=== PATIENT | male | born 1970 | race Caucasian/White ===

== ENCOUNTER → 2018-06-20 16:57 | Outpatient (CLI) | payer OTHER, SELFPAY ==
--- NOTE | 2018-06-20 16:59 | MRI_ITS ---
STUDY: MRI LEFT ELBOW REASON FOR EXAM: Male, 47 years old. Internal derangement. Lateral epicondylitis. Loose body. Pain. TECHNIQUE: Standardized fat and water weighted pulse sequences were obtained in all 3 orthogonal planes. COMPARISON: None. FINDINGS: There is a moderate volume joint effusion of the radio-capitellum articulation. There is partial tear of the radial collateral ligamentous complex. There is a tendinosis of the common extensor tendon origin with a partial deep surface tear, series 4 images 06/21 through . There is lateral epicondylar edema. Normal ulnotrochlear articulation. Normal ulnar collateral ligamentous complex. Normal common flexor tendon. The cubital tunnel is normal, with a normal ulnar nerve. Normal biceps tendon and distal insertion. Normal lacertus fibrosis. Normal brachialis musculotendinous insertion. Normal triceps tendon and teno-osseous insertion. Normal olecranon process. The visualized distal humerus, proximal radius, and ulna are normal. The visualized muscles of the distal arm and proximal forearm are normal. The soft tissue structures are unremarkable. MRI/Upper Ext Joint Only(Routine) IMPRESSION: Lateral epicondylitis with tearing of the common extensor tendon and the radial collateral ligament. Electronically Signed: Jarred Lafleur MD at 9:12 EST , Service support ,
== END ==
PROVIDERS: Family Provider Family Medicine; PCP Family Medicine; Referring Provider Orthopaedic Surgery; Visit Provider Orthopaedic Surgery
DX: M24.021 Loose body in right elbow (principal); M77.11 Lateral epicondylitis, right elbow
CPT/HCPCS: 73221

== ENCOUNTER → 2019-02-17 11:16 | Outpatient (CLI) | payer OTHER, SELFPAY ==
[2017-08-21 10:26] VITALS: BMI 30.8
[2019-02-17 11:18] LABS: Lyme Ab Screen Interpretation REF LAB
[2019-02-19 09:11] LABS: Lyme Scn Total Ab w/Rflx <0.91 ISR (0.00-0.90)
== END ==
LOC: MFPLAB 11:16
PROVIDERS: Family Provider Family Medicine; PCP Family Medicine; Referring Provider Family Medicine; Visit Provider Nurse Practitioner Adult Health
DX: T14.90XA Injury, unspecified, initial encounter (principal); W57.XXXA Bitten or stung by nonvenomous insect and other nonvenomous arthropods, initial encounter; Y92.9 Unspecified place or not applicable; Y99.9 Unspecified external cause status
CPT/HCPCS: 36415; 86618

== ENCOUNTER → 2021-05-22 09:45 | Outpatient (CLI) | payer MEDICARE, SELFPAY | PROVIDERS: PCP Family Medicine; Visit Provider Physician Assistant Surgical | DX: Z11.52 Encounter for screening for COVID-19 (principal) | CPT/HCPCS: 87635; U0005; U0003 ==

== ENCOUNTER 2022-01-05 18:32 | Emergency (ER) | payer OTHER, SELFPAY ==
[2022-01-05 18:33] VITALS: BP 162/86; PULSE 89; RESP 14; TEMP 36.8; O2SAT 99; BMI 29.5
--- NOTE | 2022-01-05 18:40 | EX.ED.DYSGE1 ---
HPI History of Present Illness Chief Complaint: Bite Informant: patient Onset/Context/Timing Onset: Weeks (1) Context: Gradual Onset Timing: Continuous Quality: Redness Location: Lumbar area Worsened by: Nothing Relieved by: Nothing Narrative Narrative: Patient presents with an insect bite that occurred 1 week ago. Patient does not know what he was bitten by. Patient states the rash is starting to look similar to the rash she had last year when he had Lyme disease. Patient denies any discharge or drainage. Patient states the area is red. Patient states there are some vesicles arranged in a circular pattern that is similar to the lesion he had last year. Patient denies any fevers or chills. Patient denies any joint pain. Patient does admit to some pain in his neck and back. Patient denies any fevers or chills. PFSH [facility] Medical History Hypertension Home Medications doxycycline monohydrate 100 mg PO BID #20 capsule 01/05/22 [Rx Last Taken Unknown] Allergy/AdvReac Type Severity Reaction Status Date / Time penicillin V Allergy Mild rash Verified 01/05/22 18:33 Family History (Updated 08/16/17 @ 10:31 by Ling Shi) Mother Hypertension Surgical History S/P knee surgery Social History Smoking Status: Current every day smoker tobacco type: cigarettes ROS ROS ED Constitutional Constitutional ED: Denies chills or fever(s) Eyes Eyes: Denies blurry vision or change in vision ENT ENT ED: Denies rhinorrhea or sore throat Cardiovascular Cardiovascular: Denies chest pain or palpitations Respiratory/Chest Respiratory/Chest: Denies cough or dyspnea Gastrointestinal Gastrointestinal: Denies nausea or vomiting Genitourinary Genitourinary ED: Denies dysuria or hematuria Musculoskeletal Musculoskeletal: Reports back pain and neck pain Integumentary Reports rash; Denies abscess Neurologic Neurologic: Denies headache(s) or weakness Allergic/Immunologic Allergic/Immunologic ED: Denies mouth swelling or urticaria EXAM Physical Exam Const Vital Signs: 01/05/22 18:33 Temperature 98.2 F Temperature Source Temporal Pulse Rate 89 Respiratory Rate 14 Blood Pressure 162/86 H Blood Pressure Mean 111 Pulse Ox 99 Oxygen Delivery Method Room Air Positive well nourished and well developed General Appearance ED: well developed and NAD HEENT Reports moist mucous membranes Neck supple and no JVD Neuro CN's II-XII intact bilaterally and no sensory deficits noted Sensorium / Orientation: alert Motor Exam: strength 5/5 throughout Skin Skin Narrative: There is erythema over the right lower lumbar paraspinal muscles. There is mild tenderness. There is mild warmth. There are some vesicles arranged in a circular pattern. There is no discharge or drainage. There is no crusting noted. There are no petechia noted. There is no involvement of the mucous membranes. MDM MDM MDM Narrative Medical decision making narrative: Lyme titers were obtained. Patient was started on doxycycline. Patient was given his first dose here. Patient was instructed to follow-up with his primary care physician in 5 to 7 days. Patient understood and was agreeable with the plan. All questions were answered. Discharge Plan Triage Chief Complaint: Bite ED Provider: Sahil Rios Dx/Rx/DC Orders Clinical Impression: Insect bite Instructions: ED Insect Bite Prescriptions: New doxycycline monohydrate 100 MG capsule 100 mg PO BID Qty: 20 RF: 0 Primary Care Provider: Care Physician,No Primary Referrals: Jose Manuel Son MD [STAFF PHYSICIAN] - 5-7 Days Disposition Disposition: Home, Self Care
[2022-01-05 18:48] VITALS: RESP 18
[2022-01-05] MEDS: Doxycycline 100 MG CAPSULE PO (18:53)
--- NOTE | 2022-01-05 19:00 | CM.ED ---
Social Work Note Reason for Referral: No PCP SW reviewed chart. Pt has no PCP and is listed as self-pay. Chata CASTREJON in to speak with pt and provided pt with list of PCP ands self-pay packet. Fatou Rocha LOTTERY SALES CLERK, PHOTOGRAPH EDITOR
[2022-01-05 19:04] LABS: Lyme Ab Screen Interpretation REF LAB
[2022-01-08 20:18] LABS: Lyme Scn Total Ab w/Rflx Negative (Negative)
== END 2022-01-05 19:03 | disposition home or self-care (01) ==
PROVIDERS: Emergency Provider Emergency Medicine; Visit Provider Emergency Medicine
DX: T63.481A Toxic effect of venom of other arthropod, accidental (unintentional), initial encounter (principal); M54.9 Dorsalgia, unspecified; F17.210 Nicotine dependence, cigarettes, uncomplicated; I10 Essential (primary) hypertension
CPT/HCPCS: 86618; 99283

== ENCOUNTER 2024-07-16 21:55 | Emergency (ER) | payer MEDICAID, SELFPAY ==
[2024-07-16 21:56] VITALS: BP 208/95; PULSE 81; RESP 18; TEMP 36.3; O2SAT 98; BMI 31.4
[2024-07-16 21:58] VITALS: BP 208/95; PULSE 81; RESP 18; TEMP 36.3; O2SAT 98
--- NOTE | 2024-07-16 22:09 | ED.VIS.DENTA ---
HPI History of Present Illness Chief Complaint: Dental [facility] Medical History Hypertension Home Medications ?Medication ?Instructions ?Recorded ?Last Taken ?Type doxycycline monohydrate 100 mg 100 mg PO BID #20 CAPSULES 01/05/22 Unknown Rx capsule clindamycin HCl 300 mg capsule 300 mg PO TID 7 days #21 caps 07/16/24 Unknown Rx Allergy/AdvReac Type Severity Reaction Status Date / Time penicillin V Allergy Mild rash Verified 07/16/24 21:56 Family History (Updated 08/16/17 @ 10:31 by Ling Shi) Mother Hypertension Surgical History S/P knee surgery Social History Smoking Status: Current every day smoker tobacco type: cigarettes EXAM Physical Exam Const Vital Signs: 07/16/24 21:56 07/16/24 21:58 Temperature 97.4 F L 97.4 F L Temperature Source Temporal Temporal Pulse Rate 81 81 Respiratory Rate 18 18 Blood Pressure 208/95 H 208/95 H Blood Pressure Mean 132 132 Pulse Ox 98 98 Oxygen Delivery Method Room Air Room Air MDM [facility] MDM Narrative Medical decision making narrative: HISTORY OF PRESENT ILLNESS: 53-year-old male here with dental pain. Patient notes several days of left lower molar pain. Notes he has appoint with dentistry on August 06. Denies fevers. Denies swelling about the throat. Denies drooling. Denies difficulty breathing. Denies neck stiffness or chest pain. REVIEW OF SYSTEMS: Pertinent positives: Pertinent negatives: PHYSICAL EXAM: Nursing triage notes reviewed, Vital signs reviewed Constitutional: please see mdm HENT: MMM, no evidence of dental abscess, no submandibular edema or induration, no tonsillar exudates or erythema, uvula midline, patient was controlling secretions, no drooling, no trimus, no dysphonia. Noted poor dentition. Patient does have significant erosion in the left posterior molar approximately tooth number 17 Eyes: Pupils equal round and reactive to light, Extraocular muscles intact Neck: No stridor, no JVD, full neck ROM Lungs: Clear to auscultation, No wheezing or rales. No increased work of breathing, no conversational dyspnea, no accessory muscle use, no nasal flaring. No respiratory distress noted Heart: Regular rate and rhythm, No murmurs, No rubs and No gallops, 2+ distal pulses (radial, femoral, posterior tibial) in all extremities MEDICAL DECISION MAKING: Chief Complaint: Dental pain External records reviewed: No recent ED visits, reviewed allergies, problem list, prior home meds Factors affecting care: None Social determinants of health: None History obtained from others: None Consults: None MDM Narrative: The patient was hemodynamically stable, afebrile, nontoxic-appearing. Exam with dental erosion consistent with poor dentition. I considered the following differential diagnosis: Dental abscess, ANUG, Ludewig's angina, RPA, PLANT SCIENCES PROFESSOR, dental caries, gingivitis No signs of any medical emergencies including Jerry's angina, ANUG, RPA, PLANT SCIENCES PROFESSOR. There are significant dental caries. Will start antibiotics in form of clindamycin, give Tylenol and ibuprofen instructions and give strict return precautions Shared decision making: I will have a discussion with the patient and or visitors regarding risk/benefits of further testing or admission. They will be made aware of of the risk/benefits inherent in this decision they will be given the opportunity to voice understanding. Impression: 1. Acute dental pain 2. Poor dentition Disposition: Discharge home This note was generated with [employer] dictation software. It may contain incorrect words, spelling, and punctuation that were not noted in review of the chart prior to signing. Discharge Plan Triage Chief Complaint: Dental ED Provider: Jakob Morel Dx/Rx/DC Orders Instructions: ED Dental Cavity Prescriptions: New clindamycin HCl 300 mg capsule 300 mg PO TID 7 Days Qty: 21 0RF No Action doxycycline monohydrate 100 MG capsule 100 mg PO BID Qty: 20 0RF Primary Care Provider: Care Physician,No Primary Referrals: Care Physician,No Primary [Primary Care Provider] - Print Language: Tristanian
[2024-07-16] MEDS: Clindamycin HCl 150 MG Capsule 300 MG PO (22:25)
[2024-07-16] MEDS: oxyCODONE 5 MG Tablet PO (22:26)
[2024-07-16] MEDS: Acetaminophen 325 MG Tablet PO (22:26)
[2024-07-16 22:30] VITALS: BP 172/91; PULSE 82; RESP 16; TEMP 36.6; O2SAT 99
== END 2024-07-16 22:37 | disposition home or self-care (01) ==
PROVIDERS: Emergency Provider Emergency Medicine; Visit Provider Emergency Medicine
DX: K08.89 Other specified disorders of teeth and supporting structures (principal); K02.9 Dental caries, unspecified; I10 Essential (primary) hypertension; F17.210 Nicotine dependence, cigarettes, uncomplicated; Z79.899 Other long term (current) drug therapy
CPT/HCPCS: 99283

== ENCOUNTER 2024-07-20 16:32 | Emergency (ER) | payer MEDICAID, SELFPAY ==
[2024-07-20 16:33] VITALS: BP 197/107; PULSE 73; RESP 16; TEMP 35.7; O2SAT 97
--- NOTE | 2024-07-20 17:15 | ED.VIS.DENTA ---
HPI History of Present Illness Chief Complaint: Dental Narrative Narrative: Chief complaint and HPI: Dental pain. 53-year-old male with no significant past medical history presents for evaluation of dental pain. Patient states for the past several days he was having pain in his left lower molar. He was seen in our emergency department on 07/16 and diagnosed with a dental infection. He was placed on clindamycin. Patient states his pain improved 2 days ago. He states yesterday he ate more of a solid meal and began having pain in the tooth again. He states he thinks food is getting stuck in the tooth. He has a dentist appointment on 08/06. Associated symptom is left ear pain. He denies any fever, chills, shortness of breath, chest pain, difficulty swallowing, difficulty speaking. Has been using ibuprofen for pain. Review of systems: See HPI Medications: As listed on the chart Allergies: As listed on the chart PFSH: Per chart Vital signs: As listed on the chart. Reviewed. Physical exam: Gen: A&O x3, NAD Head: Normocephalic, atraumatic Eyes: No sclera icterus, conjunctiva clear, PERRL, EOMI ENT: TMs clear BL, moist mucous membranes, posterior oropharynx unremarkable, uvula midline, tonsils not enlarged, no tonsillar exudates, no Jerry angina, patient has gingival swelling and tenderness around tooth #17. He has an obvious dental cavity in this tooth. No abscess. Tolerating secretions. Neck: Trachea midline, No JVD, Full ROM, No meningismus, no swelling, no lymphadenopathy CV: RRR, no murmurs, no peripheral edema Resp: Lungs CTA BL, no w/r/c, no stridor Musc: Full ROM, no deformity Skin: Warm, dry, no rash Neuro: Alert, oriented, grossly intact, sensation intact Psych: Cooperative, appropriate mood and affect [facility] Medical History Hypertension Home Medications ?Medication ?Instructions ?Recorded ?Last Taken ?Type doxycycline monohydrate 100 mg 100 mg PO BID #20 CAPSULES 01/05/22 Unknown Rx capsule clindamycin HCl 300 mg capsule 300 mg PO TID 7 days #21 caps 07/16/24 Unknown Rx Allergy/AdvReac Type Severity Reaction Status Date / Time penicillin V Allergy Mild rash Verified 12/19/24 21:56 Family History (Updated 08/16/17 @ 10:31 by Ling Shi) Mother Hypertension Surgical History S/P knee surgery Social History Smoking Status: Current every day smoker tobacco type: cigarettes EXAM Physical Exam Const Vital Signs: 07/20/24 16:33 Temperature 96.2 F L Temperature Source Temporal Pulse Rate 73 Respiratory Rate 16 Blood Pressure 197/107 H Blood Pressure Mean 137 Pulse Ox 97 Oxygen Delivery Method Room Air MDM MDM MDM Narrative Medical decision making narrative: 53-year-old male with no significant past medical history presents for evaluation of dental pain. Patient was seen for same complaint on 07/16/2024 in emergency department. He was placed on clindamycin. Pain improved but then reoccurred yesterday. See physical exam findings. Patient has obvious dental carry in tooth #17. He has gingival swelling and tenderness. No abscess to I&D. No Jerry angina. Patient is not having any systemic symptoms. Patient offered IM Toradol shot for pain and accepted. He was educated not to take ibuprofen for 8 hours. Patient was educated on on sticking to a liquid and soft diet. He was educated to stop taking the clindamycin will place on doxycycline. Patient has an allergy to penicillins. He was educated on continuing ibuprofen and Tylenol as needed for pain. Ice pack for comfort. He was also educated on brushing his teeth twice a day and after meals. He was educated on doing Orajel mouth antiseptic rinse as well. He was told that he needs to follow-up with his dentist and see if he can get an earlier dental appointment. He confirmed understanding of the plan. Patient stable to discharge home. Return precautions explained. Impression: 1. Dental infection 2. Dental pain Discharge Plan Triage Chief Complaint: Dental ED Provider: Zbigniew Dawkins Dx/Rx/DC Orders Prescriptions: No Action doxycycline monohydrate 100 MG capsule 100 mg PO BID Qty: 20 0RF clindamycin HCl 300 mg capsule 300 mg PO TID 7 Days Qty: 21 0RF Primary Care Provider: Care Physician,No Primary Referrals: Care Physician,No Primary [Primary Care Provider] - Print Language: Icelandic
[2024-07-20] MEDS: Ketorolac 30 MG/ML Syringe IM (17:25)
[2024-07-20 17:37] VITALS: BP 168/77; PULSE 74; RESP 18; TEMP 36.4; O2SAT 99
== END 2024-07-20 17:38 | disposition home or self-care (01) ==
PROVIDERS: Emergency Provider Surgery; Visit Provider Surgery
DX: K04.7 Periapical abscess without sinus (principal); I10 Essential (primary) hypertension; Z79.899 Other long term (current) drug therapy; F17.210 Nicotine dependence, cigarettes, uncomplicated; K02.9 Dental caries, unspecified
CPT/HCPCS: 96372; 99282